=== PATIENT | female | born 1970 | race Caucasian/White ===

== ENCOUNTER 2016-12-17 15:10 | Observation (INO) | payer MEDICAID, SELFPAY ==
[2016-12-17] VITALS (16 sets, daily range): BP systolic 123–151; BP diastolic 71–109; PULSE 78–100; RESP 16–18; TEMP 36.1–37.6; O2SAT 98–100; BMI 28.0; BMI 26.2
[2016-12-17 16:21] LABS: Absolute Neutrophil Count 3.4 X10^3/uL (2.0-7.7); Basophil# 0.05 X10^3/uL; Basophil% 0.9 % (0-1); Eosinophil# 0.18 X10^3/uL; Eosinophils% 3.2 % (0-5); Hematocrit 28.1 % (37-47); Hemoglobin 8.6 g/dl (12.0-15.0); Lymphocyte % 29.9 % (19-41); Mean Corp Hgb Conc 30.6 g/gl (32-36); Mean Corpuscular Hgb 25.4 pg (27.0-32.0); Mean Corpuscular Volume 82.9 fL (81-99); Mean Platelet Vol. 9.9 fl (6.2-12.0); Monocyte# 0.35 X10^3/uL; Monocyte% 6.2 % (0-10); Neutrophil % 59.6 % (47-70); Platelet Count 210 K/mm3 (150-450); RBC Distribution Width CV 21.3 % (11.6-14.6); RBC Distribution Width SD 61.3 fl (35.1-43.9); Red Blood Count 3.39 M/mm3 (4.2-5.4); White Blood Count 5.7 K/mm3 (4.4-11.0)
[2016-12-17] MEDS: Ondansetron 4 MG/2 ML Vial IV (16:21)
[2016-12-17] MEDS: 0.9% Normal Saline 1,000 ML 1000 ML IV (16:21)
[2016-12-17 16:24] LABS: Differential Indicated SCAN CRITERIA MET; POSITIVE COUNT NO; POSITIVE DIFFERENTIAL NO; POSITIVE MORPHOLOGY YES
[2016-12-17 16:33] LABS: Anion Gap 10 (5-15); BUN 5 mg/dL (7-18); BUN/Creat Ratio 7.5 RATIO (10-20); Calcium,Total 7.8 mg/dL (8.5-10.1); Chloride 111 mmol/L (98-107); Creatinine, Serum 0.67 mg/dL (0.55-1.02); EST Glomerular Filtration Rate 101 mL/min (>60); Est Glom Filt Rate - Afr Amer 122 mL/min (>60); Estimated Creatinine Clearance 86.79 ml/min; Glucose 105 mg/dL (70-110); Potassium 4.1 mmol/L (3.5-5.1); Sodium Level 144 mmol/L (136-145)
[2016-12-17 17:08] LABS: Anisocytosis 1+; Differential Comment SCAN; Microcytosis 1+
--- NOTE | 2016-12-17 18:00 | EMB_PTH ---
PATIENT: TATIANA JULIO LOC: MS3 U#:[id number] AGE/SX: 46/F ROOM: ME305 RE12/18/[address]: Dr. Mary Beth Bey DO : 1970 BED: 1 DIS: 12/20/2016 SPEC #: [id number] RECD: 12/17/16 20:24 STATUS: ANTONIO BIANKA #: [id number] SHERI: 12/17/16 18:[address]: Mary Beth Bey DEPT: SURGICAL PATHOLOGY RECD BY: Shaun Corey ENTERED: 12/20/16 11:50 SP TYPE: ENDOM BX/C OTHR DR: Dr. Suman Cordon DO Tissues: Endometrium, NOS Procedures: Surgery Specimen Level IV HEADER OPERATION: D & C PRE-OP DIAGNOSIS: Menorrhagia TISSUE SUBMITTED: Endometrial curettage MICROSCOPIC DIAGNOSIS Endometrial curettings: Secretory endometrium focal superimposed complex endometrial hyperplasia and atypical metaplastic changes and with extensive glandular and stromal breakdown. See comment. RANJEET:robina 12/21/16 COMMENT Atypia predominantly noted in desquamated cells in the lumen. Clinical correlation and appropriate follow up are necessary, repeat biopsy is suggested if clinically indicated. . Case has been reviewed in consultation with Dr. Perez who concurs with the above diagnosis. IDC:AM MICROSCOPIC DESCRIPTION Slides are reviewed. GROSS DESCRIPTION Received is one container labeled with the patient's name and not further designated. The specimen consists of multiple pieces of hemorrhagic soft tissue mixed with blood clot that in aggregate measure 5 x 3 x 0.3 cm. The entire specimen is submitted in two cassettes. / RANJEET:robina 12/20/16 TC:5 CPT: 15968
--- NOTE | 2016-12-17 18:13 | PCM.DC.D&C ---
Discharge Diet: No Restrictions Discharge Activity: Return to Normal Activity, May Shower, May Take a Tub Bath - in 2 weeks. Allergies/Adverse Reactions: Allergies No Known Allergies Allergy (Verified 12/17/16 15:17) Medications to take at Discharge Gabapentin [Neurontin] 100 mg PO BIDCM 11/09/16 Tramadol HCl 50 mg PO DAILY 11/09/16 Trazodone HCl 150 mg PO DAILY 11/09/16 Medroxyprogesterone Acetate 30 mg PO DAILY PRN #90 tablet 12/04/16 Chlordiazepoxide [Librium] 25 mg PO 4X/DAY PRN PRN #60 capsule 12/05/16 Folic Acid 1 mg PO DAILY@0800 #30 tablet 12/05/16 Iron Poly/Vit C [Niferex-150] 150 mg PO DAILYCM #90 capsule 12/05/16 Thiamine Hydrochloride [Vitamin B1] 100 mg PO BIDCM #60 tablet 12/05/16 Primary Care Physician: Suman Cordon DO [Primary Care Provider] - Please Follow Up With: Mary Beth Alatorre When: 1 week Proposed Discharge Date: 12/18/16
[2016-12-17] MEDS: Ketorolac 30 MG/ML Syringe IV (18:40)
--- NOTE | 2016-12-17 18:44 | OP.PN_ITS ---
Immediate Post-Op Note Date of Procedure: 12/17/16 Primary Surgeon/Physician: Mary Beth Alatorre supervisor benzene refining: none Pre-Operative Diagnosis: symptomatic acute blood loss anemia secondary to menorrhagia Post-Operative Diagnosis: same Surgery/Procedure Performed:: dilation and curettage Description of Surgical Findings:: see dictation Estimated Blood Loss: 50cc Specimen's removed: endometrial curettings Drains: none Type of Anesthesia:: MAC - Admit VTE Documentation VTE Present on Admission: No VTE Mechan Device Prophylaxis: SCD's VTE Pharm Prophylaxis ordered?: No
[2016-12-17] MEDS: Dextrose 5%-Lactated Ringers 1,000 ML 125 ML IV (19:30)
--- NOTE | 2016-12-17 21:02 | EDS_ITS ---
DATE OF SERVICE: 12/17/2016 CHIEF COMPLAINT: Vaginal bleeding. HISTORY OF PRESENT ILLNESS: A 46-year-old apparently 60 days of continuous vaginal bleeding. She was scheduled for a D and C yesterday, but missed it. Today, she continues to bleed and she feels weak. She also has suprapubic pain. No fever or chills associated with this. PHYSICAL EXAMINATION: VITAL SIGNS: Reveals unremarkable vitals, 151/88 with a heart rate of 98. HEART: Regular. LUNGS: Clear. GENITOURINARY: She has suprapubic pain and active external vaginal bleeding and internal exam was not performed since this is a chronic ongoing problem. EMERGENCY DEPARTMENT COURSE: The hemoglobin was found to be dropped from last time from 9.8 to 8.6. I discussed the patient with Dr. Alatorre from obstetrics and she will admit her for a D and C either tonight or tomorrow morning. IMPRESSION: Vaginal bleeding. DISPOSITION: Admit. Kirby Garcia MD T: NTS JOB: [id number]
[2016-12-17] MEDS: Acetaminophen 500 MG Tablet 1000 MG PO (21:53)
[2016-12-17] MEDS: traZODone 50 MG Tablet 150 MG PO (22:31)
[2016-12-18] VITALS (17 sets, daily range): BP systolic 100–126; BP diastolic 68–94; PULSE 67–99; RESP 16–20; TEMP 36.1–37; O2SAT 98–100
--- NOTE | 2016-12-18 00:16 | OP_ITS ---
DATE OF SERVICE: 12/17/2016 DATE OF SERVICE: 12/17/2016 PREOPERATIVE DIAGNOSIS: Symptomatic acute blood loss anemia secondary to menorrhagia. POSTOPERATIVE DIAGNOSIS: Symptomatic acute blood loss anemia secondary to menorrhagia. PROCEDURE: Dilation and curettage. PREOPERATIVE NOTE: The patient is a 46-year-old, who has history of alcoholism. She was hospitalized back on 12/04/2016 to 12/05/2016 and then again on 12/12/2016, she was seen. She has been transfused packed red blood cells and monitored in the hospital for both alcoholism and acute blood loss anemia this month. She presented to the Emergency Room on 12/15/2016 with hemoglobin of 9.9. She returns today complaining of bleeding 4 pads an hour. Hemoglobin down to 8.6. She complains of severe headache, dizziness, nausea and vomiting. Her vital signs, however, stable. When she was examined she has a moderate amount of blood in the vagina. A retained tampon was noted and removed. The decision was made to proceed with a dilation and curettage for symptomatic control of the menorrhagia. DESCRIPTION OF PROCEDURE: The patient was brought to the operating room where MAC anesthesia was found be adequate. She was prepped and draped in normal sterile fashion. Her legs were placed in stirrups. A speculum was placed in the vagina and the anterior lip of cervix was grasped with a single-tooth tenaculum. The uterus was sounded to approximately 9 cm. A sharp curettage was performed removing a moderate amount of tissue until a gritty texture was noted. The curettings were sent off for pathological analysis. Single-tooth tenaculum was removed from the cervix. The speculum was removed after the dilation and curettage was performed. The bleeding markedly slowed down. The patient was then awakened from anesthesia. She is now being brought to the recovery room in stable condition. Sponge, lap, needle counts were correct x2. Mary Beth Alatorre DO T: IRAIDA JOB: [id number]
[2016-12-18] MEDS: Ketorolac 30 MG/ML Syringe IV ×4 (02:04→20:09)
[2016-12-18] MEDS: Dextrose 5%-Lactated Ringers 1,000 ML 125 ML IV ×2 (04:11→16:58)
[2016-12-18] MEDS: Acetaminophen 500 MG Tablet 1000 MG PO (06:49)
[2016-12-18 07:18] LABS: Hematocrit 24.9 % (37-47); Hemoglobin 7.3 g/dl (12.0-15.0); Mean Corp Hgb Conc 29.3 g/gl (32-36); Mean Corpuscular Hgb 25.1 pg (27.0-32.0); Mean Corpuscular Volume 85.6 fL (81-99); Mean Platelet Vol. 10.5 fl (6.2-12.0); Platelet Count 172 K/mm3 (150-450); RBC Distribution Width CV 21.6 % (11.6-14.6); RBC Distribution Width SD 63.7 fl (35.1-43.9); Red Blood Count 2.91 M/mm3 (4.2-5.4); White Blood Count 4.4 K/mm3 (4.4-11.0)
[2016-12-18 07:19] LABS: Scan Indicated on CBC? Y/N YES- FLAGS NOTED
--- NOTE | 2016-12-18 07:53 | NURSING ---
dr keith called in to see how the pt was doing. notified of the hgb of 7.3. ordered to transfuse 2 units prbc's.
[2016-12-18] MEDS: Gabapentin 100 MG Capsule PO ×2 (08:07→17:06)
[2016-12-18] MEDS: Thiamine Hydrochloride 100 MG Tablet PO ×2 (08:07→17:06)
[2016-12-18] MEDS: Folic Acid 1 MG Tablet PO (08:07)
[2016-12-18] MEDS: Iron Polysaccharide Complex 150 MG CAPSULE PO (08:08)
[2016-12-18 08:10] LABS: Differential Comment SCAN
--- NOTE | 2016-12-18 11:03 | NURSING ---
UP TO BATHROOM W THIS NURSE ASSISTANCE. JUDITH PAD IS DRY AND INTACT.
--- NOTE | 2016-12-18 19:50 | PN.OBGYN_ITS ---
Subjective: Patient c/o some RLQ pain, cramping. Getting toradol. Steven. regular diet. Tired , hasn't rested well. Minimal vaginal bleeding. Slight lightheadedness when ambulated in hallways. No BM today. - Physical Exam General: Alert, Cooperative, No apparent distress Abdomen: Soft, Non-Distended, Tender - mildly, diffuse lower abdomen, - - no rebound, mild guarding right side Extremities: Edema - trace Vital Signs Temp Pulse Resp BP Pulse Ox 97.0 F 68 18 110/80 98 12/18/16 16:50 12/18/16 16:50 12/18/16 16:50 12/18/16 16:50 12/18/16 16:50 Oxygen Delivery Method Room Air Weight: 67.132 kg Body Mass Index (BMI) 26.2 Intake and Output for Last 24 Hours 12/16/16 12/17/16 12/18/16 23:59 23:59 23:59 Intake Total 1100 6111 Output Total 1100 Balance 1100 5011 Laboratory Tests Past 24 Hrs 12/18/16 12/18/16 06:28 08:03 WBC 4.4 RBC 2.91 L Hgb 7.3 L Hct 24.9 L MCV 85.6 MCH 25.1 L MCHC 29.3 L RDW 21.6 H RDW Differential 63.7 H Plt Count 172 MPV 10.5 Differential Comment SCAN Blood Type B POSITIVE Antibody Screen NEGATIVE Crossmatch See Detail Assessment/Plan POD#3 s/p D&C for abnormal uterine bleeding. S/p transfusion earlier in the week. 2 units today for acute worsening of chronic blood loss anemia. minimal bleeding now. Will check CBC tonight and in am and if stable ok to d/c home.
[2016-12-18 20:06] LABS: Hematocrit 32.3 % (37-47); Hemoglobin 10.2 g/dl (12.0-15.0); Mean Corp Hgb Conc 31.6 g/gl (32-36); Mean Corpuscular Hgb 26.2 pg (27.0-32.0); Mean Corpuscular Volume 82.8 fL (81-99); Mean Platelet Vol. 10.6 fl (6.2-12.0); Platelet Count 188 K/mm3 (150-450); RBC Distribution Width CV 20.2 % (11.6-14.6); RBC Distribution Width SD 59.1 fl (35.1-43.9); White Blood Count 5.9 K/mm3 (4.4-11.0)
[2016-12-18] MEDS: Furosemide 40 MG/4 ML Vial IV (20:09)
[2016-12-18 20:21] LABS: Scan Indicated on CBC? Y/N YES- FLAGS NOTED
[2016-12-18] MEDS: DiphenhydrAMINE 25 MG Capsule PO (21:06)
[2016-12-18] MEDS: traZODone 50 MG Tablet 150 MG PO (21:06)
[2016-12-19] MEDS: Ketorolac 30 MG/ML Syringe IV ×2 (03:00→08:21)
[2016-12-19 03:03] VITALS: BP 133/92; PULSE 80; RESP 16; TEMP 37; O2SAT 98
[2016-12-19 06:24] LABS: Hematocrit 30.3 % (37-47); Hemoglobin 9.6 g/dl (12.0-15.0); Mean Corp Hgb Conc 31.7 g/gl (32-36); Mean Corpuscular Hgb 26.2 pg (27.0-32.0); Mean Corpuscular Volume 82.6 fL (81-99); Mean Platelet Vol. 10.9 fl (6.2-12.0); Platelet Count 183 K/mm3 (150-450); RBC Distribution Width CV 20.3 % (11.6-14.6); RBC Distribution Width SD 58.9 fl (35.1-43.9); Red Blood Count 3.67 M/mm3 (4.2-5.4); White Blood Count 5.1 K/mm3 (4.4-11.0)
[2016-12-19 06:25] LABS: Scan Indicated on CBC? Y/N YES- FLAGS NOTED
[2016-12-19 06:52] VITALS: BP 102/68; PULSE 73; RESP 16; TEMP 36.6; O2SAT 98
[2016-12-19 07:20] LABS: Differential Comment SCANNED
[2016-12-19 07:30] VITALS: O2SAT 95
[2016-12-19 08:17] VITALS: BP 108/76; PULSE 69; RESP 16; TEMP 36.8; O2SAT 96
[2016-12-19] MEDS: Iron Polysaccharide Complex 150 MG CAPSULE PO (08:21)
[2016-12-19] MEDS: Folic Acid 1 MG Tablet PO (08:21)
[2016-12-19] MEDS: Thiamine Hydrochloride 100 MG Tablet PO ×2 (08:21→17:02)
[2016-12-19] MEDS: Gabapentin 100 MG Capsule PO ×2 (08:21→17:02)
--- NOTE | 2016-12-19 10:31 | PCM.PN.OB ---
Subjective: Pain on right side improved. Minimal vaginal bleeding. No BM, + flatus. Patient states she is trying to get a place to be discharged to but is officially homeless at this point. Plans to go to [facility] and then to [facility] for treatment. Able to ambulate. - Physical Exam General: Cooperative, No apparent distress, - - Slurring words, appears drowsy Abdomen: Soft, Non-Distended, Tender - minimally, - - no rebound or guarding, peripad w/ minimal drainage Vital Signs Temp Pulse Resp BP Pulse Ox 98.3 F 69 16 108/76 96 12/19/16 08:17 12/19/16 08:17 12/19/16 08:17 12/19/16 08:17 12/19/16 08:17 Oxygen Delivery Method Room Air Intake and Output for Last 24 Hours 12/17/16 12/18/16 12/19/16 23:59 23:59 23:59 Intake Total 4767 220 Output Total 2600 1100 Balance 2167 -880 Laboratory Tests Past 24 Hrs 12/18/16 12/18/16 12/19/16 08:03 19:50 06:06 WBC 5.9 5.1 RBC 3.90 L 3.67 L Hgb 10.2 L 9.6 L Hct 32.3 L 30.3 L MCV 82.8 82.6 MCH 26.2 L 26.2 L MCHC 31.6 L 31.7 L RDW 20.2 H 20.3 H RDW Differential 59.1 H 58.9 H Plt Count 188 183 MPV 10.6 10.9 Differential Comment SCANNED Blood Type B POSITIVE Antibody Screen NEGATIVE Crossmatch See Detail Assessment/Plan POD#2 s/p D&C for AUB and acute blood loss anemia hgb stable overnight, appropriate increase after 2 units PRBCs cont. Fe add senekot for today social issues- patient may not be able to be discharged if she does not have a safe place to go, no social workers on Tuesday to assist w/ discharge planning. May need to wait until tomorrow to be d/carolina to treatment facility d/w her no further narcotics or IV meds needed at this time
[2016-12-19] MEDS: Senna/Docusate Sodium 1 Tablet 2 TABLET PO ×2 (12:03→22:48)
--- NOTE | 2016-12-19 12:06 | NURSING ---
PT REPORTS SHE DOES NOT HAVE ANYWHERE TO BE D/C'D TO [facility]. STATES HER MOM CALLED THE [facility] AND THEY STATE SHE DOES NOT NEED TO COME FOR ALCOHOL DETOX D/T BEING IN HOSPITAL FOR 3DAYS. PER PT THE [facility] STATES SHE CAN GO TO [facility] IN AM. DR BOYD NOTIFIED THAT AT THIS POINT PT DOES NOT HAVE A SAFE PLACE TO BE D/C'D TO [facility] AND THAT HER MOTHER WILL TAKE HER TO [facility] IN THE AM.
[2016-12-19 14:13] VITALS: BP 121/85; PULSE 66; RESP 16; TEMP 36.7; O2SAT 98
--- NOTE | 2016-12-19 14:20 | NURSING ---
RESTING IN BED W/EYES CLOSED. AROUSES EASILY. REQUESTS LIBRIUM WHEN AWAKENED. PT CLOSING EYES AND ALMOST SPILLS WATER PITCHER SHE'S HOLDING. PT AGREEABLE TO WAITING TO TAKE LIBRIUM UNTIL LATER WHEN NOT SO DROWSY FOR PT SAFETY.
[2016-12-19] MEDS: Ketorolac 10 MG Tablet PO (17:02)
[2016-12-19 20:12] VITALS: BP 139/95; PULSE 66; RESP 18; TEMP 37.1; O2SAT 99
[2016-12-19] MEDS: Acetaminophen 500 MG Tablet 1000 MG PO (20:14)
[2016-12-19] MEDS: traZODone 50 MG Tablet 150 MG PO (22:47)
[2016-12-20 01:00] VITALS: BP 146/100; PULSE 72; RESP 16; TEMP 36.8; O2SAT 94
[2016-12-20] MEDS: Ketorolac 10 MG Tablet PO (01:11)
[2016-12-20 06:15] VITALS: BP 144/103; PULSE 68; RESP 16; TEMP 36.8; O2SAT 94
[2016-12-20] MEDS: Acetaminophen 500 MG Tablet 1000 MG PO (08:21)
[2016-12-20] MEDS: Gabapentin 100 MG Capsule PO (08:22)
[2016-12-20] MEDS: Thiamine Hydrochloride 100 MG Tablet PO (08:22)
[2016-12-20] MEDS: Iron Polysaccharide Complex 150 MG CAPSULE PO (08:22)
[2016-12-20] MEDS: Folic Acid 1 MG Tablet PO (08:22)
--- NOTE | 2016-12-20 09:10 | CASEMGMT ---
Social Work [see assessment] Face to face with the pt to discuss concerns of homelessness and ETOH abuse. Introduced self and role at [facility]. The pt is a pleasant 46 y/o female who reports being homeless. She states that she has been homeless for approximately the last three months after her fiance kicked her out of his home. She has reportedly been staying with friends here and there throughout the last three months. Claims that she called the [facility] where she has done detox in the past and they are not willing to accept her as she has hospitalized for more than 3 days. States that her mother is to pick her up today and take her to [facility] to see if she can stay at [facility]. Pt claims she cannot stay with her mother because she has a poor relationship with her step father and he has already said she is not allowed to stay there. The pt is unemployed and states that she was working at [employer] but had to quit because of nerve damage. Denies applying for disability, but has applied for government assistance through [employer]. Will provide pt with information on disability. She has medical assistance and food stamps through [employer], although she reports that her food stamps were recently discontinued and she will call [facility] today. Pt does report to have a diagnosis of anxiety, denies depression, SI or HI. Her PCP Dr. Cordon has treated her anxiety in the past and she is not currently on any medication. Has been to counseling in the past for approximately 6 months and states that it was not helpful, and she is not interested in services again. Inquire what the pt's coping skills are when she feels anxious and she states drinking beer. Educate pt to appropriate coping skills to reduce anxiety and the cycle that substance abuse can play a role in with mental health. Pt reports that until she came into the hospital she was drinking everyday at least six 16 oz. cans of beer. She has not gone to long-term treatment for this, but reports that she has gone to the [facility] for detox. Pt also reports to use cocaine recreationally. States that her last use was over a week ago. Pt continues to state that this is not a problem for her and she can walk away from it whenever. Discuss concerns with her abusing illicit drugs. Pt states that she would be willing to do an inpatient treatment for substance abuse if she could get accepted somewhere. Protective Factors: Relationship with mother. Risk Factors: Alcohol dependence, Cocaine abuse, limited supports, and homelessness. Goal: Assess pt's needs related to alcohol abuse and homelessness. Intervention: Educate pt to appropriate resources related to substance abuse and homelessness. Outcome: Pt to d/c to [facility] today, unless alternative placement at a substance abuse treatment center is located. ARTEM Stevenson SALVAGE ENGINEER
[2016-12-20 09:42] VITALS: BP 144/107; PULSE 77; RESP 16; TEMP 37.1; O2SAT 98
[2016-12-20] MEDS: Senna/Docusate Sodium 1 Tablet 2 TABLET PO (09:44)
[2016-12-20 10:39] VITALS: BP 153/103; PULSE 68
--- NOTE | 2016-12-20 11:44 | CASEMGMT ---
Social Work Face to face with pt and pt's mother to discuss discharge. Pt stating that [facility] is now claiming they may not have a bed for her today. Educate the pt and pt's mother to [employer] in [facility] as well as Latisha Hill of [facility]. Provide numbers and addresses. Pt thanks SW and states they will call the [employer] and if they cannot take her she will try to ask her current boyfriend if she can stay with him until she is able to get into [facility]. Provided pt with information for disability eligibility and applying as well as the contact information for the [facility] office in [place]. Pt made aware that SW is available. SW to continue to follow and assist as needed. KEDAR StevensonW SLITTING MACHINE OPERATOR HELPER
--- NOTE | 2016-12-20 11:55 | CM.UR ---
Concurrent Review Note: Pt is a 46 year old female who presented to the ED with 60 days of continuous vaginal bleeding. Pt was to have a D and C on 12/17/16 however did not show for the procedure. Pt did have the D and C while in the hospital. Pt was given 2 units of PRBC's and her hemoglobin went up to 8.6. Hemoglobin on 12/20/16 was 9.6. Pt hemoglobin was 7.3. Medical history of alcoholism, bilateral knee scopes, right arm arthritis with nerve damage. Pt is currently homeless and has been for several months since her boyfriend kicked her out. Pt was going to go to [facility] upon discharge but [facility] now informing Pt that they do not have a bed. Mother is visiting with Pt to help figure out where Pt will go upon discharge. linen room worker is following for discharge planning. Marcella Baeza, RN, BSN, CM
--- NOTE | 2016-12-20 12:35 | PCM.PN.OB ---
Subjective: patient is sitting up in bed. she is eating a regular diet meal, passing gas, no nausea, vomiting, or diarrhea. she is dressed in street close and wants to go home. she plans to stay with her mother and step father for a while until she gets into the rehab correction. - Physical Exam General: Alert, Oriented x3, Cooperative HEENT: Atraumatic Oral: Moist Mucosa, No Gingival or Mucosal Lesions/ Ulcerations Neck: Supple Lungs: Normal air movement Abdomen: Soft, Non Tender, Non-Distended Extremities: No edema, No Calf Tenderness Psych/Mental Status: Normal Affect, Appropriate Vital Signs Temp Pulse Resp BP Pulse Ox 98.8 F 77 16 144/107 98 12/20/16 09:42 12/20/16 09:42 12/20/16 09:42 12/20/16 09:42 12/20/16 09:42 Oxygen Delivery Method Room Air Intake and Output for Last 24 Hours 12/18/16 12/19/16 12/20/16 23:59 23:59 23:59 Intake Total 4767 1120 1300 Output Total 2600 1400 Balance 2167 -280 1300 Assessment/Plan 1. pod #2 - D&C for severe menorrhagia -status post 2 units PRBc. hg stable now at 9.6 -dc home with naproxen for pain. -continue progesterone daily -follow up in 2 weeks 2. htn- starting labetalol 100 mg bid but needs to see PCP merritt
--- NOTE | 2016-12-20 12:38 | PN.OBGYN_ITS ---
Subjective: patient is sitting up in bed. she is eating a regular diet meal, passing gas, no nausea, vomiting, or diarrhea. she is dressed in street close and wants to go home. she plans to stay with her mother and step father for a while until she gets into the rehab [facility]. - Physical Exam General: Alert, Oriented x3, Cooperative HEENT: Atraumatic Oral: Moist Mucosa, No Gingival or Mucosal Lesions/ Ulcerations Neck: Supple Lungs: Normal air movement Abdomen: Soft, Non Tender, Non-Distended Extremities: No edema, No Calf Tenderness Psych/Mental Status: Normal Affect, Appropriate Vital Signs Temp Pulse Resp BP Pulse Ox 98.8 F 77 16 144/107 98 12/20/16 09:42 12/20/16 09:42 12/20/16 09:42 12/20/16 09:42 12/20/16 09:42 Oxygen Delivery Method Room Air Intake and Output for Last 24 Hours 12/18/16 12/19/16 12/20/16 23:59 23:59 23:59 Intake Total 4767 1120 1300 Output Total 2600 1400 Balance 2167 -280 1300 Assessment/Plan 1. pod #2 - D&C for severe menorrhagia -status post 2 units PRBc. hg stable now at 9.6 -dc home with naproxen for pain. -continue progesterone daily -follow up in 2 weeks 2. htn- starting labetalol 100 mg bid but needs to see PCP merritt
[2016-12-20] MEDS: Labetalol 100 MG Tablet PO (12:48)
--- NOTE | 2016-12-21 01:59 | DS_ITS ---
DATE OF SERVICE: HOSPITAL COURSE: The patient is a 46-year-old who presented to [facility] at approximately 17:20 on 12/17/2016 with the complaint of heavy vaginal bleeding and foul smell coming from the vagina. She had been admitted the month prior for menorrhagia and was transfused 2 units of blood. Her hemoglobin was back down to 8.6 and she was bleeding heavily. During the Emergency Room examination, she had a retained tampon; however, did have some brisk bleeding coming from the cervix. The decision was made to proceed with an emergency dilation and curettage. She underwent the procedure and this was uncomplicated. There is a moderate amount of tissue that was extracted from the endometrium and passed off for pathology analysis. The pathology report at this time is pending. On postoperative day #1, her hemoglobin was down lower to 7.3. She was complaining of some shortness of breath. Vital signs at that time showed a heart rate in the 80s with slight dip in her blood pressure, the decision was made to proceed with another transfusion. Following the transfusion, she was 10.2. Yesterday, her hemoglobin was 9.6. The patient 2 days after transfusion now states that she feels much better. Her bleeding has stopped completely. She has been given progesterone and she has been taking Toradol for the pain. Her blood pressure; however, is 140s over low 100s. The decision was made to start her on labetalol 100 mg twice a day and she is to see her family doctor immediately after discharge. She is being sent home with a prescription for labetalol and naproxen. She has progesterone at home that she will continue to take. She does need something permanent. I suggested a Mirena intrauterine device because of how well she responded to progesterone; however, she declines this, hysterectomy, uterine ablation or other options. I suggest minimally invasive for her. She does have a history of alcoholism and I am recommending that she seek help through the [facility] for treatment at their shelters. The patient is willing to do this. She agrees that she will follow up with me and her family doctor this week. Mary Beth Alatorre DO T: IRAIDA JOB: [id number]
[2016-12-21 14:18] LABS: Surgical Specimen Collection SEE PATHOLOGY REPORT
[2016-12-21 15:11] LABS: Pathology Specimen OB SEE PATHOLOGY REPORT
== END 2016-12-20 12:53 | disposition home or self-care (01) | DRG 517 ==
LOC: ED 07-10 15:29 → SDC 07-10 15:29 → MS3 07-10 15:29
PROVIDERS: Obstetrics & Gynecology; Admitting Provider Obstetrics & Gynecology; Emergency Provider Emergency Medicine; Family Provider Family Medicine; PCP Family Medicine; Visit Provider Obstetrics & Gynecology
DX: N85.01 Benign endometrial hyperplasia (principal); N93.9 Abnormal uterine and vaginal bleeding, unspecified; D62 Acute posthemorrhagic anemia; Z59.0 Homelessness; I10 Essential (primary) hypertension; F10.20 Alcohol dependence, uncomplicated; K21.9 Gastro-esophageal reflux disease without esophagitis
CPT/HCPCS: 58120; 36415; 36430; 80048; 85025; 85027; 86644; 86850; 86900; 86920; 86922; 88305; 99218; 99284; J7030; J7040; P9016; G0378; J1940; J2405

== ENCOUNTER 2017-01-07 22:55 | Inpatient (IN) | payer MEDICAID, SELFPAY ==
[2017-01-03 12:15] VITALS: BP 123/84; PULSE 68; RESP 16; TEMP 36.6; O2SAT 97; BMI 27.2
--- NOTE | 2017-01-03 12:20 | SDCEKG_ITS ---
Test Reason : Blood Pressure : / mmHG Vent. Rate : 059 BPM Atrial Rate : 059 BPM P-R Int : 116 ms QRS Dur : 070 ms QT Int : 398 ms P-R-T Axes : 040 044 039 degrees QTc Int : 394 ms Sinus bradycardia Otherwise normal ECG Confirmed by RENATO BELTRAN, NIRAJ ([id number]), editor department SARAH LAND ([id number]) on 01/05/2017 1:43:11 PM Referred By: RONAN Confirmed By:NIRAJ GROSS MD
[2017-01-03 14:08] LABS: International Normalized Ratio 1.1; Prothrombin Time (Protime)PT. 13.4 SECONDS (11.7-14.9)
[2017-01-03 14:12] LABS: Hematocrit 35.9 % (37-47); Hemoglobin 10.8 g/dl (12.0-15.0); Mean Corp Hgb Conc 30.1 g/gl (32-36); Mean Corpuscular Hgb 25.5 pg (27.0-32.0); Mean Corpuscular Volume 84.9 fL (81-99); Platelet Count 225 K/mm3 (150-450); RBC Distribution Width CV 21.6 % (11.6-14.6); RBC Distribution Width SD 67.4 fl (35.1-43.9); Red Blood Count 4.23 M/mm3 (4.2-5.4); White Blood Count 5.6 K/mm3 (4.4-11.0)
[2017-01-03 14:13] LABS: Scan Indicated on CBC? Y/N YES- FLAGS NOTED
[2017-01-03 14:21] LABS: AST(SGOT) 110 U/L (15-37); Alanine Aminotransfer ALT/SGPT 70 U/L (12-78); Albumin, Serum 3.7 g/dL (3.4-5.0); Alkaline Phosphatase 65 U/L (45-117); Anion Gap 6 (5-15); BUN 8 mg/dL (7-18); BUN/Creat Ratio 9.4 RATIO (10-20); Bilirubin, Direct 0.12 mg/dL (0.00-0.30); Calcium,Total 8.9 mg/dL (8.5-10.1); Chloride 107 mmol/L (98-107); Creatinine, Serum 0.85 mg/dL (0.55-1.02); EST Glomerular Filtration Rate 77 mL/min (>60); Est Glom Filt Rate - Afr Amer 93 mL/min (>60); Estimated Creatinine Clearance 68.41 ml/min; Glucose 94 mg/dL (70-110); Potassium 3.9 mmol/L (3.5-5.1); Protein, Total 7.7 g/dL (6.4-8.2); Sodium Level 138 mmol/L (136-145)
[2017-01-03 14:42] LABS: Differential Comment SCANNED
[2017-01-07] VITALS (11 sets, daily range): BP systolic 91–130; BP diastolic 59–94; PULSE 67–94; RESP 16–20; TEMP 36.2–37; O2SAT 96–98; BMI 27.2; BMI 27.8
[2017-01-07 06:02] LABS: Internal QC Validated? YES +Cl - CLEAR BKGD; Pregnancy, Urine Negative Negative
[2017-01-07] MEDS: Phenazopyridine 95 MG Tablet 190 MG PO (06:13)
[2017-01-07 06:20] LABS: Amphetamine Urine VISTA NEGATIVE (<1000 ng/mL); Barbiturate Urine VISTA NEGATIVE (< 200 ng/mL); Benzodiazepine Urine VISTA POSITIVE (< 200 ng/mL); Cocaine Urine VISTA NEGATIVE (< 300 ng/mL); Ecstacy Urine VISTA POSITIVE (< 500 ng/mL); Methadone Urine VISTA NEGATIVE (< 300 ng/mL); PCP Urine VISTA NEGATIVE (< 25 ng/mL); THC Urine VISTA NEGATIVE (< 50 ng/mL); Vista UDS pH Range 5
[2017-01-07] MEDS: Labetalol 100 MG Tablet PO (07:03)
--- NOTE | 2017-01-07 07:50 | HYST_PTH ---
PATIENT: TATIANA JULIO LOC: MS3 U#:[id number] AGE/SX: 46/F ROOM: MS321 RE01/07/[address]: Dr. Suman Shaw DO : 1970 BED: 1 DIS: 01/09/2017 SPEC #: [id number] RECD: 01/07/17 12:30 STATUS: ANTONIO REMaisha #: [id number] SHERI: 01/07/17 07:[address]: Mary Beth Bey DEPT: SURGICAL PATHOLOGY RECD BY: Christ Castro ENTERED: 01/07/17 12:30 SP TYPE: HYSTERECT OTHR DR: Dr. Suman Cordon DO Tissues: Uterus, NOS Procedures: Decalcification bone/plaque Surgery Specimen Level V HEADER OPERATION: Lap robotic hysterectomy PRE-OP DIAGNOSIS: Dysfunctional uterine bleeding, pelvic pain, mild cervical dysplasia, complex endometrial hyperplasia TISSUE SUBMITTED: Uterus, cervix, bilateral fallopian tubes MICROSCOPIC DIAGNOSIS Uterus, hysterectomy: Cervix - focal HPV change suspected. Endometrium - weakly proliferative endometrium with focal cystic change. Myometrium - leiomyomas and adenomyosis. Right fallopian tube - no pathologic change. Left fallopian tube - paratubal cyst. AM:robina 01/10/17 MICROSCOPIC DESCRIPTION Slides are reviewed. GROSS DESCRIPTION Received is one container labeled with the patient's name and designated uterus, cervix and bilateral fallopian tubes. The specimen consists of a previously opened hysterectomy specimen consisting of uterus with cervix and attached bilateral fallopian tubes. The uterus with cervix weighs 283 gm. The margin of the cervix is inked black. The ectocervical mucosa is unremarkable. The endocervical canal measures 3.5 cm in length. No obvious lesion is identified. This is transected at the internal os and level of transection is inked black. The cervix reveals multiple cysts filled with mucoid material. The entire cervix is submitted as deformed. The endometrial cavity is compressed and measures 5 cm in length and 0.5 cm in width. The endometrium is alcaraz, glistening without any mass lesion and measures 0.1 cm in thickness. The anterior wall could not be properly identified due to previous sectioning. Sections of the uterine wall reveal multiple nodular masses. The larges mass measures 5 cm in diameter. Sections of these masses reveal alcaraz whorled cut surfaces without areas of hemorrhage, necrosis or cystic degeneration. The largest nodular mass also shows area of calcification. The uterine wall is distorted due to the presence of the nodular masses. The uninvolved uterine wall measures up to 3 cm in thickness. The right fallopian tube measures 6 cm in length and 0.5 cm in diameter. The fimbrial end is identified. Sections do not reveal any mass lesion. The left fallopian tube measures 6 cm in length and 0.5 cm in diameter. It appears to be interrupted in the middle and proximal portions. Boat Canvas Installer sections are submitted in 21 cassettes as follows: 1-8 - cervix like a cone (1 & 2 - 12 to 3 o'clock, 3 & 4 - 3 to 6 o'clock, 5 & 6 - 6 to 9 o'clock, 7 & 8 - 9 to 12 o'clock), 9 & 10 - anterior uterine wall, 12-14 - posterior uterine wall (entire endometrium is submitted in the posterior uterine wall), 15-19 - nodular masses (15 & 16 - smaller nodular mass, 17 - intermediate size nodular mass, 18 & 19 - largest nodular mass with calcification, submitted after decalcification), 20 - right fallopian tube, 21 - left fallopian tube. / RANJEET:robina 01/07/17 TC:1 CPT: 55719, 00606
[2017-01-07] MEDS: Bupivacaine 0.25% 30 ML Vial (08:26)
--- NOTE | 2017-01-07 09:17 | PCM.IMDPSTOP ---
Immediate Post-Op Note Date of Procedure: 01/07/17 Primary Surgeon/Physician: Mary Beth Alatorre ediscovery project manager: Robbie Lozano Pre-Operative Diagnosis: 1. menorrhagia, 2. acute blood loss anemia secondary to menorrhagia, 3. complex endometrial hyperplasia with atypia, 4. pelvic pain, 5. enlarge fibroid uterus Post-Operative Diagnosis: same Surgery/Procedure Performed:: Total robotic hysterectomy, bilateral salpingectomy, cystoscopy Description of Surgical Findings:: see dictation. no complications Estimated Blood Loss: 100cc Specimen's removed: uterus, tubes, cervix Drains: askew catheter Type of Anesthesia:: General Special Medications: hydralazine and labetalol given intraoperatively for htn - Admit VTE Documentation VTE Present on Admission: No VTE Mechan Device Prophylaxis: SCD's VTE Pharm Prophylaxis ordered?: Yes
--- NOTE | 2017-01-07 09:19 | PCM.DC.VHY ---
Discharge Diet: No Restrictions Discharge Activity: Return to Normal Activity, May Not Drive - while taking narcotic pain medications., May Shower May resume sexual activity in: 8 weeks Lifting Restrictions: 20 pounds Call your doctor if your incision/area has: Continuous Slow Oozing, Sudden Increased Bleeding, Increased Pain/ Swelling, Increased Redness, Foul Smelling Discharge, Swelling at the incision site Call your doctor if you observe: Fever of 101 or Higher, Inability to urinate, Inability to have a bowel movement, Using more than one pad per hour, Shortness of breath, Dizziness, Swelling in the ankles, Calf discomfort, Uncontrolled pain Allergies/Adverse Reactions: Allergies No Known Allergies Allergy (Verified 01/07/17 05:51) Medications to take at Discharge Trazodone HCl 150 mg PO QHS PRN 11/09/16 Folic Acid 1 mg PO DAILY@0800 #30 tablet 12/05/16 Iron Poly/Vit C [Niferex-150] 150 mg PO DAILYCM #90 capsule 12/05/16 Thiamine Hydrochloride [Vitamin B1] 100 mg PO BIDCM #60 tablet 12/05/16 Labetalol [Trandate (Beta Angelita)] 100 mg PO BID #60 tablet 12/20/16 Diazepam [Valium] 5 mg PO TID PRN PRN 01/03/17 Medroxyprogesterone Acetate 90 mg PO DAILY 01/03/17 Oxycodone HCl/Acetaminophen [Percocet 5/325] 1 tablet PO Q6H PRN PRN 01/03/17 Naproxen [Naprosyn] 500 mg PO BID PRN PRN #40 tablet 01/07/17 Oxycodone HCl/Acetaminophen [Percocet 5/325] 1 - 2 tablet PO Q4H PRN PRN #40 tablet 01/07/17 The following prescriptions were given: Oxycodone HCl/Acetaminophen [Percocet 5/325] 1 - 2 tablet PO Q4H PRN PRN #40 tablet PRN Reason: Pain Naproxen [Naprosyn] 500 mg PO BID PRN PRN #40 tablet PRN Reason: pain Primary Care Physician: Suman Cordon DO [Primary Care Provider] - Please Follow Up With: Mary Beth Alatorre When: 1-2 weeks Proposed Discharge Date: 01/08/17
[2017-01-07] MEDS: Ketorolac 30 MG/ML Syringe IV ×3 (09:50→22:39)
[2017-01-07] MEDS: Dextrose 5%-Lactated Ringers 1,000 ML 125 ML IV ×2 (11:13→19:43)
[2017-01-07] MEDS: Folic Acid 1 MG Tablet PO (13:22)
[2017-01-07] MEDS: Thiamine Hydrochloride 100 MG Tablet PO (13:22)
[2017-01-07] MEDS: Iron Polysaccharide Complex 150 MG CAPSULE PO (13:23)
--- NOTE | 2017-01-07 13:30 | OP_ITS ---
DATE OF SERVICE: 01/07/2017 DATE OF SERVICE: 01/07/2017 SURGEON: Mary Beth Alatorre M.D. ASSISTANT DESIGNER: PATTY German. PREOPERATIVE DIAGNOSES: 1. Menorrhagia. 2. Complex hyperplasia with atypia. 3. Pelvic pain. 4. Multiple episodes of acute blood loss anemia due to menorrhagia. POSTOPERATIVE DIAGNOSES: 1. Menorrhagia. 2. Complex hyperplasia with atypia. 3. Pelvic pain. 4. Multiple episodes of acute blood loss anemia due to menorrhagia. PROCEDURE: Total robotic hysterectomy, bilateral salpingectomy and cystoscopy. ESTIMATED BLOOD LOSS: 100 mL COMPLICATIONS: None. FINDINGS: Enlarged fibroid uterus, normal ovaries bilaterally with the exception of a small left ovarian simple cyst. Cystoscopy showed no evidence of leaking at approximately 250 mL of normal saline. Positive ureteral orifices and jet seen flowing from both ureters. No suture material noted in the bladder. DESCRIPTION OF PROCEDURE: The patient was brought to the operating room where general anesthesia was found to be adequate, she was prepped and draped in normal sterile fashion. Her legs were placed in stirrups. A weighted speculum was placed in the vagina and the anterior lip of the cervix was grasped with a single-tooth tenaculum. The uterus was sounded to 12 cm and dilated to 5 mm. A VCare uterine manipulator was placed into the cervix and into the uterus and the bulb was insufflated at the 2 and 10 o'clock positions on the cervix. A 0 Vicryl stitch was used to suture the VCare manipulator into place. A Jensen catheter was placed. The single-tooth tenaculum was removed. The weighted speculum was removed, gloves were changed and attention was turned towards the abdomen approximately 23 cm above the pubic symphysis in the midline after 0.25% Sensorcaine injection, a 5 mm incision was made 5 mm trocar was inserted into the abdomen under direct visualization using the laparoscope. At 12.5 cm lateral to the umbilicus, 8-mm accessory robotic trocars were placed under direct visualization. The left upper quadrant 8 mm air-seal device was inserted without difficulty. Survey of the abdomen showed a mild amount of adhesions to the anterior uterine wall containing omentum only. Uterus was found to be enlarged with a fundal fibroid present. Both ovaries appeared to be normal with the exception of a small left ovarian simple cyst approximately 2 cm. The liver appeared to be diseased, it is consistent with her alcoholism. No other acute pathology was noted. The hysterectomy was initiated first by removing the right tube. The vessel sealer was used to cauterize and cut the underlying mesosalpinx to the level of the cornua. The utero-ovarian ligament was cauterized and cut. The round ligament was cauterized and cut. The broad ligament was and opened down to the level of the bladder. The bladder flap was created. All this done with the vessel sealer device. Uterine arteries were isolated and cauterized. Same procedure was performed on the left side. Bladder flap was created more discretely using the hot prema to the level of the cervicovaginal junction. The uterine manipulator cup was identified. After the uterine arteries were isolated further starting from the ascending branch dissecting along the edges of the cervix to the level of the cervicovaginal junction. These were cauterized and cut. The colpotomy was then performed using the hot prema in a circumferential pattern around the cervix. The uterus was then amputated and removed through the vagina without difficulty. The vaginal cuff was closed using V-Loc stitch in a running fashion. Excellent hemostasis was noted. There was a small area that appeared to be a little bit raw on the right aspect of the cuff, but was not bleeding. Ishan was applied to this area. Next, a cystoscopy was performed using a 70-degree cystoscope into the urethra. Intraoperative images were noted and ureteral jets were seen filling from both ureters. No suture material or bladder lacerations were identified. At this time, the procedure was ended. The cystoscope was removed from the bladder and a Jensen catheter was replaced. Vaginal sweep was performed and no foreign objects were left in the vagina. All instruments were removed under direct visualization. The skin was closed with a 4-0 Monocryl and sealed with Steri-Strips. The patient tolerated the procedure well. Sponge, lap, needle counts were correct x2, and she is now being brought to the recovery room in stable condition. Pool Jay MD T: NTS JOB: [id number]
[2017-01-07] MEDS: 0.9% NaCl Peripheral Flush Adult/Peds IV ×4 (15:40→22:39)
--- NOTE | 2017-01-07 15:42 | CASEMGMT ---
Social Work Face to face with the pt per her request to talk about advanced directives. Introduced self and role at [facility]. The pt reports that her mother is bringing her completed documents and she will need two witnesses to sign. Informed if SW is not here on the floor when her mother arrives, SW will be here tomorrow. Pt inquires about rehab at the hospital. Inform that the pt could do the [facility] program if she is assessed and they take her but that she would have to be discharged and readmitted under their care. Provided the pt with a brochure for [facility]. Pt states that she is not interested in an outside facility as her family is all here. No further needs at this time, SW to f/u with Tuesday. ARTEM Stevenson EDUCATION MANAGER
--- NOTE | 2017-01-07 16:44 | CASEMGMT ---
Social Work In to speak with the pt per her request. States that her mother forgot the advanced directives, but can bring them tomorrow. Educate the pt's mother to [facility] as well. Both express understanding. SW to follow-up with tomorrow. Adelia Aldridge, SOIL SCIENCE TECHNICAL OFFICER TOOL GRINDER SET UP OPERATOR GEAR
[2017-01-07 23:12] LABS: Hematocrit 24.8 % (37-47); Hemoglobin 7.7 g/dl (12.0-15.0)
[2017-01-08] VITALS (19 sets, daily range): BP systolic 95–134; BP diastolic 65–95; PULSE 79–110; RESP 16–20; TEMP 36.4–37.2; O2SAT 95–995; BMI 27.8
--- NOTE | 2017-01-08 00:14 | NURSING ---
Dr. Velez came up to floor and did vaginal assessment per primary RN at bedside, verbal orders received.
--- NOTE | 2017-01-08 00:34 | PCM.PN.BLA ---
Progress Note Pain 05/26. Same now as earlier today. Not getting worse. c/o pain in her shoulder/arm. Some vaginal bleeding PE- awake, alert, NAD abd-moderate distention, slightly firm, moderate rebound, incisions- bandages clean, dry and intact vagina- moderate amount dark red blood in the vault. Vault intact, no clots, no active bleeding from cuff noted several 6 cm clots tonight earlier a/p post day#1 s/p hysterectomy for complex endometrial hyperplasia w/ atypia likely postop hemorrhage w/ acute worsening of chronic anemia vitals stable urine output adequate monitor hgb, type and cross and hold 2 units d/w her if further drop may need to consider taking her back for exploratory surgery to control postop bleeding patient understands and agrees w/ plan difficult to control her pain as had high pain levels even before surgery
[2017-01-08 01:06] LABS: Hematocrit 22.8 % (37-47); Hemoglobin 7.2 g/dl (12.0-15.0)
[2017-01-08 01:13] LABS: International Normalized Ratio 1.2; Prothrombin Time (Protime)PT. 14.4 SECONDS (11.7-14.9)
[2017-01-08 01:14] LABS: Partial Thromboplast Time 28.7 Seconds (24.1-36.2)
[2017-01-08 01:15] LABS: Fibrinogen 193 mg/dl (203-444)
[2017-01-08] MEDS: 0.9% NaCl Peripheral Flush Adult/Peds IV ×5 (01:49→17:26)
[2017-01-08] MEDS: Acetaminophen 500 MG Tablet 1000 MG PO (02:47)
[2017-01-08] MEDS: DiphenhydrAMINE 50 MG/ML Syringe 25 MG IV (02:47)
[2017-01-08] MEDS: Ketorolac 30 MG/ML Syringe IV ×4 (03:57→21:33)
[2017-01-08] MEDS: Dextrose 5%-Lactated Ringers 1,000 ML 125 ML IV (06:33)
[2017-01-08 07:56] LABS: Hematocrit 25.7 % (37-47); Hemoglobin 8.4 g/dl (12.0-15.0); Mean Corp Hgb Conc 32.7 g/gl (32-36); Mean Corpuscular Hgb 28.2 pg (27.0-32.0); Mean Corpuscular Volume 86.2 fL (81-99); Mean Platelet Vol. 10.9 fl (6.2-12.0); Platelet Count 191 K/mm3 (150-450); RBC Distribution Width SD 57.6 fl (35.1-43.9); Red Blood Count 2.98 M/mm3 (4.2-5.4); White Blood Count 11.8 K/mm3 (4.4-11.0)
[2017-01-08 07:58] LABS: Scan Indicated on CBC? Y/N NO
--- NOTE | 2017-01-08 09:00 | PCM.PN.OB ---
Subjective: patient co pain still- just got another dose of dilaudid. no significant further bleeding after Dr Velez examined her. She denies any other complaints but is thirsty - Physical Exam General: Alert, Oriented x3 Abdomen: Soft, Tender, - - mild distension, incsn: C/D/I Vital Signs Temp Pulse Resp BP Pulse Ox 98.5 F 90 18 107/71 99 01/08/17 08:07 01/08/17 08:07 01/08/17 08:07 01/08/17 08:07 01/08/17 08:07 Oxygen Delivery Method Room Air Weight: 71.3 kg Body Mass Index (BMI) 27.8 Intake and Output for Last 24 Hours 01/06/17 01/07/17 01/08/17 23:59 23:59 23:59 Intake Total 5366.5 1363 Output Total 2350 450 Balance 3016.5 913 Laboratory Tests Past 24 Hrs 01/07/17 01/08/17 01/08/17 22:55 00:45 00:45 WBC RBC Hgb 7.7 L 7.2 L Hct 24.8 L 22.8 L MCV MCH MCHC RDW RDW Differential Plt Count MPV PT INR APTT Fibrinogen Blood Type B POSITIVE Antibody Screen NEGATIVE Crossmatch See Detail 01/08/17 01/08/17 00:45 07:34 WBC 11.8 H RBC 2.98 L Hgb 8.4 L Hct 25.7 L MCV 86.2 MCH 28.2 MCHC 32.7 RDW 19.0 H RDW Differential 57.6 H Plt Count 191 MPV 10.9 PT 14.4 INR 1.2 APTT 28.7 Fibrinogen 193 L Blood Type Antibody Screen Crossmatch Assessment/Plan s/p robotic hysterectomy with postoperative anemia acute on chronic blood loss anemia s/p 2 u PRBCS- repeat Hg and coags, lfts- patient is chronic alcoholic and was positive for meth and benzos on admission. sips/chips for now until repeat bloodwork at noon.
[2017-01-08] MEDS: Thiamine Hydrochloride 100 MG Tablet PO (10:31)
[2017-01-08] MEDS: Labetalol 100 MG Tablet PO (10:31)
[2017-01-08] MEDS: Iron Polysaccharide Complex 150 MG CAPSULE PO (10:31)
[2017-01-08] MEDS: Folic Acid 1 MG Tablet PO (10:31)
[2017-01-08 12:12] LABS: Hemoglobin 7.9 g/dl (12.0-15.0); Mean Corp Hgb Conc 32.9 g/gl (32-36); Mean Corpuscular Hgb 28.2 pg (27.0-32.0); Mean Corpuscular Volume 85.7 fL (81-99); Mean Platelet Vol. 10.1 fl (6.2-12.0); Platelet Count 169 K/mm3 (150-450); RBC Distribution Width CV 18.9 % (11.6-14.6); RBC Distribution Width SD 57.9 fl (35.1-43.9); White Blood Count 10.2 K/mm3 (4.4-11.0)
[2017-01-08 12:16] LABS: Scan Indicated on CBC? Y/N NO
[2017-01-08 12:25] LABS: International Normalized Ratio 1.2; Prothrombin Time (Protime)PT. 14.4 SECONDS (11.7-14.9)
[2017-01-08 12:26] LABS: Fibrinogen 223 mg/dl (203-444); Partial Thromboplast Time 29.2 Seconds (24.1-36.2)
[2017-01-08 12:51] LABS: AST(SGOT) 46 U/L (15-37); Alanine Aminotransfer ALT/SGPT 40 U/L (12-78); Albumin, Serum 3.1 g/dL (3.4-5.0); Alkaline Phosphatase 36 U/L (45-117); Anion Gap 8 (5-15); BUN 6 mg/dL (7-18); BUN/Creat Ratio 6.9 RATIO (10-20); Calcium,Total 8.4 mg/dL (8.5-10.1); Chloride 101 mmol/L (98-107); Creatinine, Serum 0.86 mg/dL (0.55-1.02); EST Glomerular Filtration Rate 75 mL/min (>60); Est Glom Filt Rate - Afr Amer 91 mL/min (>60); Estimated Creatinine Clearance 67.62 ml/min; Globulin 3.2 g/dL (2.3-3.5); Glucose 108 mg/dL (70-110); Potassium 3.5 mmol/L (3.5-5.1); Protein, Total 6.3 g/dL (6.4-8.2); Sodium Level 134 mmol/L (136-145)
--- NOTE | 2017-01-08 13:20 | PCM.PN.OB ---
Subjective: pain still the same level, able to ambulate and miinmal vaginal bleeding, no CP SOB, no nausea or vomiting, Hg dropped another .5 g - Physical Exam General: Alert, Oriented x3 Abdomen: Soft, Distended, Tender Vital Signs Temp Pulse Resp BP Pulse Ox 98.5 F 90 18 107/71 99 01/08/17 08:07 01/08/17 08:07 01/08/17 08:07 01/08/17 08:07 01/08/17 08:07 Oxygen Delivery Method Room Air Weight: 71.3 kg Body Mass Index (BMI) 27.8 Intake and Output for Last 24 Hours 01/06/17 01/07/17 01/08/17 23:59 23:59 23:59 Intake Total 5366.5 1363 Output Total 2350 450 Balance 3016.5 913 Laboratory Tests Past 24 Hrs 01/07/17 01/08/17 01/08/17 22:55 00:45 00:45 WBC RBC Hgb 7.7 L 7.2 L Hct 24.8 L 22.8 L MCV MCH MCHC RDW RDW Differential Plt Count MPV PT INR APTT Fibrinogen Sodium Potassium Chloride Carbon Dioxide Anion Gap BUN Creatinine Estim Creat Clear Calc Est GFR (MDRD) Af Amer Est GFR (MDRD) Non-Af BUN/Creatinine Ratio Glucose Calcium Total Bilirubin AST ALT Alkaline Phosphatase Total Protein Albumin Globulin Albumin/Globulin Ratio Blood Type B POSITIVE Antibody Screen NEGATIVE Crossmatch See Detail 01/08/17 01/08/17 01/08/17 00:45 00:45 07:34 WBC 11.8 H RBC 2.98 L Hgb 8.4 L Hct 25.7 L MCV 86.2 MCH 28.2 MCHC 32.7 RDW 19.0 H RDW Differential 57.6 H Plt Count 191 MPV 10.9 PT 14.4 INR 1.2 APTT 28.7 Fibrinogen 193 L Sodium Potassium Chloride Carbon Dioxide Anion Gap BUN Creatinine Estim Creat Clear Calc Est GFR (MDRD) Af Amer Est GFR (MDRD) Non-Af BUN/Creatinine Ratio Glucose Calcium Total Bilirubin AST ALT Alkaline Phosphatase Total Protein Albumin Globulin Albumin/Globulin Ratio Blood Type Antibody Screen Crossmatch See Detail 01/08/17 01/08/17 01/08/17 12:00 12:00 12:00 WBC 10.2 RBC 2.80 L Hgb 7.9 L Hct 24.0 L MCV 85.7 MCH 28.2 MCHC 32.9 RDW 18.9 H RDW Differential 57.9 H Plt Count 169 MPV 10.1 PT 14.4 INR 1.2 APTT 29.2 Fibrinogen 223 Sodium 134 L Potassium 3.5 Chloride 101 Carbon Dioxide 25.0 Anion Gap 8 BUN 6 L Creatinine 0.86 Estim Creat Clear Calc 67.62 Est GFR (MDRD) Af Amer 91 Est GFR (MDRD) Non-Af 75 BUN/Creatinine Ratio 6.9 L Glucose 108 Calcium 8.4 L Total Bilirubin 0.80 AST 46 H ALT 40 Alkaline Phosphatase 36 L Total Protein 6.3 L Albumin 3.1 L Globulin 3.2 Albumin/Globulin Ratio 1.0 Blood Type Antibody Screen Crossmatch Assessment/Plan Hg still dropping recommend surgical evaluation will take patient back for diagnostic laparoscopy, possible laparotomy possible cystoscopy. addiitonal units of blood and FFP ordered. vital signs stable right now.
--- NOTE | 2017-01-08 15:13 | NURSING ---
off unit for surgery via bed 1400.
[2017-01-08] MEDS: Bupiv/Epi 0.5% Mpf 30 ML Vial (15:17)
[2017-01-08] MEDS: FERRIC SUBSULFATE 8 GM SOLN TOPICAL (17:50)
[2017-01-08 18:26] LABS: Hematocrit 26.7 % (37-47); Hemoglobin 8.7 g/dl (12.0-15.0)
--- NOTE | 2017-01-08 20:00 | NURSING ---
pt trying to climb over bed rail. Pt confused, wanting to get dressed. Reminded patient of previous bleeding and pt did not remember bleeding issues on previous shift. Pt ripped off one fenwal band, discouraged to rip off any others. vital signs stable, no bleeding at beginning of episode but small amount of bleeding to umbilical site noted once convinced and helped to lay back down. abdominal binder placed and valium given. Dr. Lew called with concerns. Hospitalist consulted for increased confusion/alcohol withdrawl. Friend at bedside.
--- NOTE | 2017-01-08 20:28 | OP_ITS ---
DATE OF SERVICE: 01/08/2017 DATE OF SERVICE: 01/08/2017 PREOPERATIVE DIAGNOSES: Postoperative hemorrhage; anemia, acute on chronic secondary to acute blood loss. POSTOPERATIVE DIAGNOSES: Postoperative hemorrhage; anemia, acute on chronic secondary to acute blood loss. No active bleeding identified, just 500 mL of clot in the pelvis. PROCEDURES: Diagnostic laparoscopy, irrigation of clot. SURGEON: Felicity Lew M.D. MILL CONTROLLER: PATTY Dyer ESTIMATED BLOOD LOSS: 500 mL of clot irrigated. No active bleeding. DESCRIPTION OF PROCEDURE: The patient was taken to the operating room, was placed under general anesthesia, was prepped and draped in normal sterile fashion in the dorsal lithotomy position. Jensen catheter was already in place, SCDs were on and sponge stick was placed in the vagina after the vagina was evaluated and noted to have no active bleeding. The umbilical incision was injected with 0.5% Marcaine with epinephrine and Veress needle entered into the abdomen confirming intra-abdominal. Abdomen insufflated with CO2 gas. A 5 mm port placed under direct visualization and previous right and left sided abdominal incisions were reopened and 12 mm port was placed in the left side. A 5 mm port was placed in the right side and the pelvis was well visualized. 500 mL of dark old clot was noted to be adherent to the vaginal cuff in the pelvis. This was copiously irrigated and most was removed through an EndoCatch bag through the 12 port without complication and all adherent clot was irrigated off and the vaginal cuff was well visualized. Bilateral adnexa were well visualized and no active bleeding was noted. This was visualized even after taking down the pressure and again no active bleeding was noted. The upper abdomen was inspected and the liver had an abnormal appearance to which was previously noted on the previous laparoscopic the day prior. Otherwise, no other gross abnormalities were seen. Again, the pelvis was checked and no active bleeding was seen. ____ raw appearance to it, so covered with two 3 g containers of Ishan. Pressure was let down and no active bleeding was noted. Using the Memo-Gilberto, a 12 mm port was closed with 0 Vicryl and the skin ____ were closed with 3-0 Monocryl. The patient was awoken and taken to recovery in stable condition. Felicity Lew MD T: NTS JOB: [id number]
--- NOTE | 2017-01-08 20:39 | PCM.CONS.GEN ---
Problem List (1) Menorrhagia Status: Chronic (2) Overweight (BMI 25.0-29.9) Status: Chronic (3) Alcohol dependence Status: Chronic Qualifiers: Substance use status: in withdrawal Reason for Consult Date of Consultation: 01/08/17 Reason for Consultation: Med consultation, BZD/EtOH withdrawal History of Present Illness: The patient is a 46 y/o F w/ PMHx: Polysubstance abuse, Menorrhagia, Obesity who presented to the [facility] on 01/07/17 for planned OR 01/07/17 AVERY w/ BLSOO secondary to menorrhagia, complex hyperplasia w/ atypia, chronic pelvic pain, chronic Fe deficiency anemia. Per review of history she then 01/08/17 returned to OR for evacuation of clot. Noted elevated HR, agitation and delirium thus UDS obtained w/ + agents and concerns. Hospitalist consulted for withdrawal concerns. Past Medical History Past Medical History (Chronic Problems): Chronic Problems Menorrhagia (Chronic) Overweight (BMI 25.0-29.9) (Chronic) Alcohol dependence (Chronic) Allergies No Known Allergies Allergy (Verified 01/07/17 05:51) Home Medications: Ambulatory Orders Medication Instructions Recorded Trazodone HCl 150 mg PO QHS PRN 11/09/16 Folic Acid 1 mg PO DAILY@0800 #30 tablet 12/05/16 Iron Poly/Vit C [Niferex-150] 150 mg PO DAILYCM #90 capsule 12/05/16 Thiamine Hydrochloride [Vitamin B1] 100 mg PO BIDCM #60 tablet 12/05/16 Labetalol [Trandate (Beta Angelita)] 100 mg PO BID #60 tablet 12/20/16 Diazepam [Valium] 5 mg PO TID PRN PRN 01/03/17 Medroxyprogesterone Acetate 90 mg PO DAILY 01/03/17 Oxycodone HCl/Acetaminophen 1 tablet PO Q6H PRN PRN 01/03/17 [Percocet 5/325] Naproxen [Naprosyn] 500 mg PO BID PRN PRN #40 tablet 01/07/17 Oxycodone HCl/Acetaminophen 1 - 2 tablet PO Q4H PRN PRN #40 01/07/17 [Percocet 5/325] tablet Surgical History: - - section and bilateral tubal ligation Psychiatric History: - - Alcohol dependency - hospitalized x 3 days last year in [place]. 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 Denies: Chills, Fever, Weight Change HEENT: Denies: Head Aches, Sinus Congestion, Sinus Drainage Cardiovascular: Denies: Chest Pain, Palpitations Respiratory: Denies: Cough, Shortness of breath at rest, Sputum production Gastrointestinal: Reports: Abdominal Pain. Denies: Nausea, Vomiting Genitourinary: Denies: Dysuria Gynecological: Reports: Vaginal bleeding Musculoskeletal: Denies: Joint Pain, Joint Tenderness Skin: Denies: Rash, Wounds Neurological: Reports: Confusion. Denies: Focal weakness, Numbness, Tingling Psychiatric: Denies: Anxiety, Depression, Homicidal Ideations, Suicidal Ideations Hematologic/ Lymphatic: Denies: Easy Bruising, Easy Bleeding Subjective: Seated upright in bed, notes abdominal pain s/p OR, confused, friend present. Objective: Physical Examination: General: awake, moderately alert, not oriented, confused, remains cooperative, seated upright in bed, in discomfort w/ recent OR. Skin: normal color, turgor, no icterus, cyanosis. HEENT: AT/NC, EOMI, PERRLA, dry MM, no carotid bruits or JVD noted. Lungs: CTA bilaterally, moderate effort, moderate decrease BL bases, no rales, ronchi or wheezing. Heart: Mildly tachycardic with regular rhythm; no gallop, rub audible. Abdomen: soft, expected TTP s/p recent AVERY BLSOO and return to OR for evac, moderately distended, decreased HS, defer HSM given pain w/ palpation. Extremities: no cyanosis, clubbing, or edema. Neurological: patient awake, moderately alert, not oriented; cognitive function NOT BASELINE; pupils equally reactive to light and accomodation; cranial nerves II-XII grossly normal, moving all 4 extremities, no focal deficits, strength severely globally decreased. Psychiatric: affect appears mildly agitated, no acute evidence of depressive or anxiety feelings. - Physical Exam Vital Signs Temp Pulse Resp BP Pulse Ox 97.9 F 107 20 108/74 98 01/08/17 20:13 01/08/17 20:13 01/08/17 20:13 01/08/17 20:13 01/08/17 20:13 Oxygen Delivery Method Room Air Weight: 157 lb 3.033 oz Body Mass Index (BMI) 27.8 Intake and Output for Last 24 Hours 01/06/17 01/07/17 01/08/17 23:59 23:59 23:59 Intake Total 5366.5 5299 Output Total 2350 2300 Balance 3016.5 2999 Laboratory Tests Past 24 Hrs 01/07/17 01/08/17 01/08/17 22:55 00:45 00:45 WBC RBC Hgb 7.7 L 7.2 L Hct 24.8 L 22.8 L MCV MCH MCHC RDW RDW Differential Plt Count MPV PT INR APTT Fibrinogen Sodium Potassium Chloride Carbon Dioxide Anion Gap BUN Creatinine Estim Creat Clear Calc Est GFR (MDRD) Af Amer Est GFR (MDRD) Non-Af BUN/Creatinine Ratio Glucose Calcium Total Bilirubin AST ALT Alkaline Phosphatase Total Protein Albumin Globulin Albumin/Globulin Ratio Blood Type B POSITIVE Antibody Screen NEGATIVE Crossmatch See Detail 01/08/17 01/08/17 01/08/17 00:45 00:45 07:34 WBC 11.8 H RBC 2.98 L Hgb 8.4 L Hct 25.7 L MCV 86.2 MCH 28.2 MCHC 32.7 RDW 19.0 H RDW Differential 57.6 H Plt Count 191 MPV 10.9 PT 14.4 INR 1.2 APTT 28.7 Fibrinogen 193 L Sodium Potassium Chloride Carbon Dioxide Anion Gap BUN Creatinine Estim Creat Clear Calc Est GFR (MDRD) Af Amer Est GFR (MDRD) Non-Af BUN/Creatinine Ratio Glucose Calcium Total Bilirubin AST ALT Alkaline Phosphatase Total Protein Albumin Globulin Albumin/Globulin Ratio Blood Type Antibody Screen Crossmatch See Detail 01/08/17 01/08/17 01/08/17 12:00 12:00 12:00 WBC 10.2 RBC 2.80 L Hgb 7.9 L Hct 24.0 L MCV 85.7 MCH 28.2 MCHC 32.9 RDW 18.9 H RDW Differential 57.9 H Plt Count 169 MPV 10.1 PT 14.4 INR 1.2 APTT 29.2 Fibrinogen 223 Sodium 134 L Potassium 3.5 Chloride 101 Carbon Dioxide 25.0 Anion Gap 8 BUN 6 L Creatinine 0.86 Estim Creat Clear Calc 67.62 Est GFR (MDRD) Af Amer 91 Est GFR (MDRD) Non-Af 75 BUN/Creatinine Ratio 6.9 L Glucose 108 Calcium 8.4 L Total Bilirubin 0.80 AST 46 H ALT 40 Alkaline Phosphatase 36 L Total Protein 6.3 L Albumin 3.1 L Globulin 3.2 Albumin/Globulin Ratio 1.0 Blood Type Antibody Screen Crossmatch 01/08/17 18:10 WBC RBC Hgb 8.7 L Hct 26.7 L MCV MCH MCHC RDW RDW Differential Plt Count MPV PT INR APTT Fibrinogen Sodium Potassium Chloride Carbon Dioxide Anion Gap BUN Creatinine Estim Creat Clear Calc Est GFR (MDRD) Af Amer Est GFR (MDRD) Non-Af BUN/Creatinine Ratio Glucose Calcium Total Bilirubin AST ALT Alkaline Phosphatase Total Protein Albumin Globulin Albumin/Globulin Ratio Blood Type Antibody Screen Crossmatch Assessment/Plan The patient is a 46 y/o F w/ PMHx: Polysubstance abuse, Menorrhagia, Obesity who presented to the [facility] on 01/07/17 for planned OR 01/07/17 AVERY w/ BLSOO secondary to menorrhagia, complex hyperplasia w/ atypia, chronic pelvic pain, chronic Fe deficiency anemia. (1) Chronic Fe Deficiency Anemia secondary to Menorrhagia: 01/08/17 Hgb 8.7, stable. Continue Fe supplementation, bowel regimen if needed. OR 01/07/17 AVERY w/ BLSOO secondary to menorrhagia, complex hyperplasia w/ atypia, chronic pelvic pain, chronic Fe deficiency anemia. 01/08/17 return to OR for evacuation of clot. Pain regimen, diet per primary service. Will d/c heparin given her history, higher risk of contributing to bleed than DVT risk. (2) Delirium secondary to EtOH Abuse: Will maintain on CIWA protocol, MVI, thiamine and folic acid. If symptoms not controlled with this regimen may consider addition of additional agent, i.e. phenobarbital taper as example. (3) Delirium secondary to Benzodiazepine abuse: Restart home valium regimen to avoid withdrawal. (4) Opiate Abuse/Prior Hx of Cocaine abuse: Advise extreme caution upon discharge with narcotic abuse history. Currently on PRN regimen, advise strongly only low dose short-acting upon discharge. (5) Elevated HR, ? 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 Will discontinue as on drugs of abuse as noted and not good agent for BP. If needs BP regimen following withdrawal treatment then would recommend low dose ACEI or HCTZ. Likely secondary to Withdrawal given presentations as well as her anemia. (6) Overweight: Weight loss and lifestyle changes encouraged. (7) DVT prophylaxis: SCDs, WILL DISCONTINUE HEPARIN GIVEN admission history w/ OR 01/08/17 w/ evacuation of blood clots, diagnostic lap for post-op hemorrhage.
[2017-01-08] MEDS: Lactated Ringers 1,000 ML 125 ML IV (21:22)
[2017-01-08 21:38] LABS: Magnesium 1.6 mg/dL (1.8-2.4); Phosphorus 3.2 mg/dL (2.5-4.9)
[2017-01-08] MEDS: traZODone 50 MG Tablet 150 MG PO (23:26)
[2017-01-09 02:19] VITALS: BP 139/94; PULSE 107; RESP 20; TEMP 37.4; O2SAT 94
[2017-01-09] MEDS: Lactated Ringers 1,000 ML 125 ML IV (04:29)
[2017-01-09] MEDS: Ketorolac 30 MG/ML Syringe IV ×2 (04:31→09:47)
[2017-01-09 06:28] VITALS: BP 127/84; PULSE 103; RESP 18; TEMP 36.9; O2SAT 94
[2017-01-09 06:46] LABS: Hematocrit 24.8 % (37-47); Hemoglobin 8.1 g/dl (12.0-15.0); Mean Corp Hgb Conc 32.7 g/gl (32-36); Mean Corpuscular Volume 85.8 fL (81-99); Mean Platelet Vol. 10.2 fl (6.2-12.0); Platelet Count 122 K/mm3 (150-450); RBC Distribution Width CV 18.1 % (11.6-14.6); RBC Distribution Width SD 56.4 fl (35.1-43.9); Red Blood Count 2.89 M/mm3 (4.2-5.4); White Blood Count 6.7 K/mm3 (4.4-11.0)
[2017-01-09 06:53] LABS: Scan Indicated on CBC? Y/N NO
[2017-01-09 07:35] VITALS: O2SAT 92
[2017-01-09] MEDS: Thiamine Hydrochloride 100 MG Tablet PO (07:51)
[2017-01-09] MEDS: Multivitamins,Ther W-Minerals Tablet 1 TABLET PO (07:51)
[2017-01-09] MEDS: Folic Acid 1 MG Tablet PO (07:51)
[2017-01-09] MEDS: Iron Polysaccharide Complex 150 MG CAPSULE PO (07:51)
[2017-01-09] MEDS: 0.9% NaCl Peripheral Flush Adult/Peds IV ×2 (07:52→09:48)
[2017-01-09 09:52] VITALS: BP 132/92; PULSE 97; RESP 18; TEMP 37.3; O2SAT 92
--- NOTE | 2017-01-09 10:40 | PCM.PN.BLA ---
Progress Note S: Pain reports some pain but doing OK O: AF, VS reviewed abd - soft, NT, ND inc - bandages c/d/i ext - calves NT A&P: POD# 1&2, s/p hyst & then diag l/s Plan to transition to oral pain meds Heme - mild tachycardia likely d/t anemia, resume iron & folic acid at home Discussed with medicine team & patient will resume valium & other home meds F/u with next week or PRN
--- NOTE | 2017-01-09 10:48 | CASEMGMT ---
Patient not appropriate for interview at this time due to medical condition. Inpatient CM will follow-up when patient is appropriate. MARTÍN WhiteheadN, RN-BC, CCM
[2017-01-09 13:30] VITALS: BP 151/103; PULSE 98; RESP 18; TEMP 36.9; O2SAT 99
--- NOTE | 2017-01-09 14:59 | NURSING ---
pts mother voiced concerns of taking pt home d/t her dog. i told her that was out of our control, suggested putting dog in a room until her daughter is settled and then bring dog out. mother said that would not work, dog humps, jumps, paws. etc. and they are not comfortable with daughter going to house because he will be working. mother then reported that dr keith had stated that we have another room here at the hospital that pt could go to until she recovers, like a longterm. i assured mother, pt, , that pt is not going to qualify or be accepted at a longterm d/t her recent surgery. mother then asking about any other ecf. told her the same thing. mother then tried to have dr keith paged via bottom saw operator, who told her that had to go through nursing. this nurse told them that dr keith was out of town, mother replied, I know, she was going to [place]. i just wanted to ask her a question. assured her that dr keith would not be paged. this nurse did call and speak with dr ponce and told her the mothers concerns that were voiced. dr ponce agreed pt did not need to go to ecf. as far as the gynocologist was concerned pt did not need to remain in the hospital. she and dr hannah were also notified of elevated bp and that the labetolol was stopped last hs. both in agreement, pt could resume when she got home.
--- NOTE | 2017-01-09 16:29 | PCM.PROGNOTE ---
Subjective: Patient was seen and examined today, I talked with gynecological surgery and they feel the patient is stable from their standpoint for discharge, she appears stable medically to me today for discharge. Patient is alert, she is appropriate, I talked to her about her tox screen which was positive for methamphetamines-she denied any intake of methamphetamines or any intake of Wellbutrin which can cause a positive tox screen for methamphetamines. Patient also states that she quit drinking several weeks ago, however, she and her boyfriend did state that she had a beer the other day at home. - Physical Exam General: Alert, Oriented x3, Cooperative, No apparent distress, Well developed, Well nourished HEENT: Atraumatic, PERRLA, EOMI, Normocephalic Oral: Moist Mucosa Neck: Supple, No JVD, Negative Carotid Bruits, No Nuchal Rigidity, Trachea Midline, Thyroid Normal Size and Texture Lungs: Clear to auscultation, Normal air movement, No rhonchi, No wheeze, No rales Cardiovascular: Regular rate, Regular Rhythm, Normal S1, Normal S2, No murmurs, No Ectopic Activity, PMI Normal, No rub noted, No Gallop Abdomen: Bowel Sounds Present, Soft, No hernias noted Extremities: No clubbing, No cyanosis, No edema, Capillary Refill Less than 3 Seconds Skin: No rashes, No breakdown Musculoskeletal: No Tenderness to Palpation of Joints or Extremities, No Muscle Wasting Neurological: Cranial nerves II-XII grossly intact, Neuro grossly intact, Sensory exam intact to light touch and pain, Coordination normal Psych/Mental Status: Normal Affect, Appropriate, Alert and oriented to time, place, person, mood and affect Vital Signs Temp Pulse Resp BP Pulse Ox 98.5 F 98 18 151/103 99 01/09/17 13:30 01/09/17 13:30 01/09/17 13:30 01/09/17 13:30 01/09/17 13:30 Oxygen Delivery Method Room Air Weight: 71.3 kg Body Mass Index (BMI) 27.8 Intake and Output for Last 24 Hours 01/07/17 01/08/17 01/09/17 23:59 23:59 23:59 Intake Total 5366.5 6134 2816 Output Total 2350 3000 1860 Balance 3016.5 3134 956 Laboratory Tests Past 24 Hrs 03/01/08/17 01/09/17 18:10 21:00 06:26 WBC 6.7 RBC 2.89 L Hgb 8.7 L 8.1 L Hct 26.7 L 24.8 L MCV 85.8 MCH 28.0 MCHC 32.7 RDW 18.1 H RDW Differential 56.4 H Plt Count 122 L MPV 10.2 Phosphorus 3.2 Magnesium 1.6 L Assessment/Plan #1 hypertension-patient is on labetalol at home, she is to resume this when she gets home #2 anxiety disorder-patient takes Valium at home #3 chronic iron deficiency anemia-patient is on iron at home #4 transient delirium-etiology is unknown at this time, patient appears appropriate today #5 positive tox screen for methamphetamines-again patient vehemently denies taking them and her boyfriend also denies that she takes them.
== END 2017-01-09 15:55 | disposition home or self-care (01) | DRG 791 ==
LOC: SDC 04-07 12:48 → MS3 04-07 12:48
PROVIDERS: Anesthesiology; Family Medicine; Obstetrics & Gynecology; Admitting Provider Obstetrics & Gynecology; Family Provider Family Medicine; PCP Family Medicine; Visit Provider Internal Medicine
DX: N99.820 Postprocedural hemorrhage of a genitourinary system organ or structure following a genitourinary system procedure (principal); D62 Acute posthemorrhagic anemia; D25.9 Leiomyoma of uterus, unspecified; N92.0 Excessive and frequent menstruation with regular cycle; R10.2 Pelvic and perineal pain; N85.02 Endometrial intraepithelial neoplasia [EIN]; R41.0 Disorientation, unspecified; R78.89 Finding of other specified substances, not normally found in blood; F41.9 Anxiety disorder, unspecified; I10 Essential (primary) hypertension; F10.20 Alcohol dependence, uncomplicated
CPT/HCPCS: 36415; 80048; 80053; 80076; 80307; 81025; 83735; 84100; 85014; 85018; 85027; 85384; 85610; 85730; 86850; 86900; 86920; 86922; 88307; 88311; 93005; 97802; J7040; J7120; P9016; J0330; J2405

== ENCOUNTER 2020-05-02 06:53 | Emergency (ER) | payer MEDICAID, SELFPAY ==
[2020-05-02 06:55] VITALS: BP 114/87; PULSE 77; RESP 16; TEMP 37; O2SAT 100; BMI 28.0
--- NOTE | 2020-05-02 07:20 | ED.VISSUMM ---
- ER Visit Summary Date of Service: 05/02/20 Chief Complaint: Neck and back pain History of Present Illness: The patient is a [address] Mcnamara. She reports that she has had neck pain for approximately 2 weeks. She denies any trauma. No fall, MVA, or change in activity. States the pain is a sharp pain is 10 on 10 severity. Is now radiating down into her back. She states that it is worsened by turning her head or stress. She taken Flexeril, Tylenol, and ibuprofen without relief. Patient denies any radiation to her arms or her legs. No numbness or weakness. No problems with her bowels or her bladder. No groin numbness. Patient denies any fever, chills, IV drug abuse, or other red flags. Physical Examination: Vitals: Stable. Afebrile. General: Well-nourished and well-developed. Head: Normocephalic atraumatic. Neck: Supple, no lymphadenopathy. No JVD. No vertebral tenderness. She does have moderate tenderness palpation to the trapezius muscles bilaterally. 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 Normal median, ulnar, and radial nerve function in both motor and sensory distributions. Normal sensation light touch in a C5-T1 distribution. 2+ biceps and triceps reflexes bilaterally. Cardiovascular: Regular rate and rhythm. No murmurs. Respiratory: No respiratory distress. Clear to auscultation bilaterally. Abdominal: Soft, nontender, nondistended, normal bowel sounds. No guarding, rebound, or peritoneal signs. Back: No vertebral tenderness. Mild diffuse tenderness palpation over the paraspinous musculature throughout the entire thoracic lumbar spine. No point tenderness. 5 out of 5 dorsiflexion, plantarflexion, extensor hallucis longus bilaterally. Normal sensation light touch throughout. Normal gait. Extremities: Nontender, no edema. Skin: Normal color, no rash. Neurologic: Alert and oriented ?3. Cranial nerves II through XII are intact. Normal strength and sensation. Psych: Normal affect. Emergency Department Course and Treatment: An [facility] report was obtained which showed she had one prescription for opiates in the past year. She was given oxycodone, Tylenol, and naproxen here. She already has taken Flexeril at home. Treatment Plan: Patient be discharged prescription for Percocet and naproxen. Instructed to follow-up with her primary care physician in 3 to 5 days for another exam. Did discuss symptomatic management with warm compresses and a TENS unit. Return to the emergency department for any worsening symptoms. Disposition: To home in improved and stable condition. Impression: 1. Muscular neck/back pain. This note was generated with [employer] dictation software. It may contain incorrect words, spelling, and punctuation that were not noted in review of the chart prior to signing ED Disposition - Plan for ED Patient: Disposition: Home or Assisted Living Instructions: ED Spasm Neck No Injury Prescriptions: Naproxen [Naprosyn] 500 mg PO BID #14 tab Prescription Printed Oxycodone HCl/Acetaminophen [Percocet 5/325] 1 tab PO Q6H PRN PRN 3 Days #12 tab PRN Reason: Pain Prescription Printed Referrals: Suman Olivares MD [Primary Care Provider] - 3-5 Days if not improving
[2020-05-02] MEDS: oxyCODONE 5 MG Tablet 10 MG PO (07:24)
[2020-05-02] MEDS: Acetaminophen 500 MG Tablet 1000 MG PO (07:25)
[2020-05-02] MEDS: Naproxen 500 MG Tablet PO (07:25)
== END 2020-05-02 07:28 | disposition home or self-care (01) ==
LOC: ED 07:26
PROVIDERS: Emergency Provider Emergency Medicine; PCP Family Medicine
DX: M54.2 Cervicalgia (principal); M54.9 Dorsalgia, unspecified; F41.9 Anxiety disorder, unspecified
CPT/HCPCS: 99283